=== PATIENT | male | born 1955 | race Caucasian/White ===

== ENCOUNTER 2018-12-17 13:38 | Inpatient (IN) | payer OTHER, MEDICARE ==
[2018-12-17 15:43] LABS: ADD MAN DIFF? NO
[2018-12-17 15:44] LABS: WHITE BLOOD COUNT 11.4 10^3/ul (4.8-10.8)
[2018-12-17 15:44] LABS: BASOPHIL # 0.1 10^3/ul (0.0-0.1); BASOPHILS % 0.5 % (0.0-2.0); EOSINOPHILS # 0.2 10^3/ul (0.0-0.5); EOSINOPHILS % 1.7 % (0.0-7.0); HEMATOCRIT 46.3 % (42.0-52.0); HEMOGLOBIN 15.2 g/dl (14.0-18.0); LYMPHOCYTES # 1.5 10^3/ul (0.8-2.9); LYMPHOCYTES % 13.4 % (15.0-51.0); MEAN CORPUSCULAR HEMOGLOBIN 29.6 pg (29.0-33.0); MEAN CORPUSCULAR HGB CONC 32.8 g/dl (32.0-37.0); MEAN CORPUSCULAR VOLUME 90.1 fl (82.0-101.0); MEAN PLATELET VOLUME 8.9 fl (7.4-10.4); MONOCYTE # 1.1 10^3/ul (0.3-0.9); MONOCYTES % 9.6 % (0.0-11.0); NEUTROPHIL # 8.5 10^3/ul (1.6-7.5); NEUTROPHILS % 74.4 % (39.0-77.0); PLATELET COUNT 279 10^3/UL (140-415); RED BLOOD COUNT 5.14 10^6/ul (4.70-6.10); RED CELL DISTRIBUTION WIDTH 12.7 % (11.5-14.5)
[2018-12-17 15:53] LABS: ALANINE AMINOTRANSFERASE 33 IU/L (13-69); ALBUMIN 4.1 g/dl (3.3-4.9); ALBUMIN/GLOBULIN RATIO 1.41; ALKALINE PHOSPHATASE 92 IU/L (42-121); ANION GAP 11 (5-13); ASPARTATE AMINO TRANSFERASE 39 IU/L (15-46); BILIRUBIN,INDIRECT 1.7 mg/dl (0-1.1); BILIRUBIN,TOTAL 1.7 mg/dl (0.2-1.3); BLOOD UREA NITROGEN 35 mg/dl (7-20); CARBON DIOXIDE 27 mmol/L (21-31); CHLORIDE 105 mmol/L (97-110); CREATININE 3.86 mg/dl (0.61-1.24); Estimated GFR 16 mL/min (>60); GLUCOSE 72 mg/dl (70-220); POTASSIUM 4.1 mmol/L (3.5-5.1); SODIUM 143 mmol/L (135-144)
[2018-12-17 16:01] LABS: B-TYPE NATRIURETIC PEPTIDE 121 PG/ML (0-125)
[2018-12-17] MEDS ORDERED: ACETAMINOPHEN 325 MG TAB PO (17:00)
[2018-12-17] MEDS ORDERED: ONDANSETRON 4 MG INJ IV ×2 (17:00→17:30)
[2018-12-17] MEDS ORDERED: NACL 0.9% 3 ML SYG IV (17:30)
[2018-12-17] MEDS: HYDROCODONE/APAP (5/325) TAB PO ×2 (18:03→21:02)
[2018-12-17 18:23] LABS: ADD UMIC YES; UR ASCORBIC ACID 40 mg/dL (NEGATIVE); UR BACTERIA FEW /HPF (NONE SEEN); UR BILIRUBIN (Dip) NEGATIVE (NEGATIVE); UR BLOOD (Dip) NEGATIVE (NEGATIVE); UR CLARITY CLEAR (CLEAR); UR COLOR YELLOW (YELLOW); UR GLUCOSE (Dip) NEGATIVE (NEGATIVE); UR KETONES (Dip) NEGATIVE (NEGATIVE); UR LEUKOCYTE ESTERASE (Dip) TRACE Leu/ul (NEGATIVE); UR MUCUS FEW /HPF (NONE SEEN); UR NITRITE (Dip) NEGATIVE (NEGATIVE); UR RBC 8 /HPF (0-5); UR TOTAL PROTEIN (Dip) NEGATIVE (NEGATIVE); UR UROBILINOGEN (Dip) NEGATIVE (NEGATIVE); UR WBC 10 /HPF (0-5)
[2018-12-17 18:57] LABS: URIC ACID 7.6 mg/dl (3.1-7.9)
[2018-12-17 19:03] LABS: POTASSIUM,URINE RANDOM 31.1 mmol/L (25-125)
[2018-12-17 19:03] LABS: SODIUM,URINE RANDOM 43 mmol/L (30-90)
[2018-12-17] MEDS: SOD CHLORIDE 0.9% 1,000 ML IV (19:55)
[2018-12-17 20:17] LABS: B-TYPE NATRIURETIC PEPTIDE 148 PG/ML (0-125)
[2018-12-17 20:33] LABS: OSMOLALITY 299 mOsm/kg (280-295); OSMOLALITY,URINE 309 mOsm/kg (250-1200)
[2018-12-17] MEDS: TAMSULOSIN (SR) 0.4 MG CAP PO (21:02)
[2018-12-17] MEDS: ATENOLOL 25 MG TAB PO (21:03)
[2018-12-18] MEDS: morphine 2 MG INJ IV ×2 (02:52→15:46)
[2018-12-18] MEDS: SOD CHLORIDE 0.9% 1,000 ML IV ×3 (03:11→20:44)
[2018-12-18] MEDS: PANTOPRAZOLE (EC) 40 MG TAB PO (05:40)
[2018-12-18 06:15] LABS: ADD MAN DIFF? NO
[2018-12-18 06:25] LABS: WHITE BLOOD COUNT 11.4 10^3/ul (4.8-10.8)
[2018-12-18 06:25] LABS: BASOPHILS % 0.3 % (0.0-2.0); EOSINOPHILS # 0.1 10^3/ul (0.0-0.5); EOSINOPHILS % 0.9 % (0.0-7.0); HEMATOCRIT 43.6 % (42.0-52.0); HEMOGLOBIN 14.3 g/dl (14.0-18.0); LYMPHOCYTES # 1.4 10^3/ul (0.8-2.9); LYMPHOCYTES % 12.4 % (15.0-51.0); MEAN CORPUSCULAR HEMOGLOBIN 29.6 pg (29.0-33.0); MEAN CORPUSCULAR HGB CONC 32.8 g/dl (32.0-37.0); MEAN CORPUSCULAR VOLUME 90.3 fl (82.0-101.0); MEAN PLATELET VOLUME 9.2 fl (7.4-10.4); MONOCYTE # 1.2 10^3/ul (0.3-0.9); MONOCYTES % 10.8 % (0.0-11.0); NEUTROPHIL # 8.6 10^3/ul (1.6-7.5); NEUTROPHILS % 75.3 % (39.0-77.0); PLATELET COUNT 267 10^3/UL (140-415); RED BLOOD COUNT 4.83 10^6/ul (4.70-6.10); RED CELL DISTRIBUTION WIDTH 12.9 % (11.5-14.5)
[2018-12-18 06:51] LABS: ALANINE AMINOTRANSFERASE 42 IU/L (13-69); ALBUMIN 3.8 g/dl (3.3-4.9); ALBUMIN/GLOBULIN RATIO 1.26; ALKALINE PHOSPHATASE 79 IU/L (42-121); ANION GAP 14 (5-13); ASPARTATE AMINO TRANSFERASE 36 IU/L (15-46); BILIRUBIN,INDIRECT 1.7 mg/dl (0-1.1); BILIRUBIN,TOTAL 1.7 mg/dl (0.2-1.3); BLOOD UREA NITROGEN 44 mg/dl (7-20); CALCIUM 8.8 mg/dl (8.4-10.2); CARBON DIOXIDE 21 mmol/L (21-31); CHLORIDE 106 mmol/L (97-110); CREATININE 5.71 mg/dl (0.61-1.24); Estimated GFR 10 mL/min (>60); GLUCOSE 90 mg/dl (70-220); MAGNESIUM 2.1 mg/dl (1.7-2.5); POTASSIUM 4.3 mmol/L (3.5-5.1); SODIUM 141 mmol/L (135-144); TOTAL PROTEIN 6.8 g/dl (6.1-8.1)
[2018-12-18] MEDS: ASPIRIN 81 MG TAB PO (08:18)
[2018-12-18 08:26] LABS: PHOSPHORUS 8.2 mg/dl (2.5-4.9)
[2018-12-18 08:26] LABS: CREATINE KINASE 542 IU/L (23-200)
[2018-12-18] MEDS ORDERED: ASCORBIC ACID 500 MG TAB PO (09:00)
[2018-12-18] MEDS ORDERED: ENOXAPARIN 30 MG/0.3 ML SYG SC (09:00)
[2018-12-18] MEDS: MAGNESIUM HYDROXIDE 30ML CUP PO (09:23)
[2018-12-18] MEDS: ACETAMINOPHEN 325 MG TAB PO (09:24)
[2018-12-18] MEDS: NIACIN (ER) 500 MG TAB PO (09:24)
[2018-12-18] MEDS: DOCUSATE SODIUM 100 MG CAP PO (09:26)
[2018-12-18] MEDS: METOPROLOL (XL) 25 MG TAB PO ×2 (09:27→20:46)
[2018-12-18] MEDS: BUPROPION (XL) 150 MG TAB PO (10:41)
[2018-12-18 10:56] LABS: CREATININE,URINE RANDOM 125.59 mg/dl (20-370)
[2018-12-18] MEDS: CALCIUM ACETATE 667 MG CAP PO ×2 (12:14→18:24)
[2018-12-18] MEDS: HEPARIN 5,000 UNIT/1 ML VIAL SC ×2 (15:06→21:05)
[2018-12-18 18:42] LABS: CREATININE,URINE RANDOM 114.78 mg/dl (20-370); PROTEIN/CREAT RATIO 0.11 RATIO
[2018-12-18 19:55] LABS: PROSTATE SPECIFIC ANTIGEN 4.5 ng/ml (0.0-4.0)
[2018-12-18] MEDS: TAMSULOSIN (SR) 0.4 MG CAP PO (20:45)
[2018-12-18] MEDS: CHOLECALCIFEROL 2,000 UNIT CAP PO (20:46)
[2018-12-18] MEDS ORDERED: ATORVASTATIN 40 MG TAB PO (21:00)
[2018-12-19] MEDS: HEPARIN 5,000 UNIT/1 ML VIAL SC ×3 (05:24→21:07)
[2018-12-19] MEDS: PANTOPRAZOLE (EC) 40 MG TAB PO (05:24)
[2018-12-19] MEDS: SOD CHLORIDE 0.9% 1,000 ML IV (05:26)
[2018-12-19 06:12] LABS: ADD MAN DIFF? NO
[2018-12-19 06:17] LABS: BASOPHIL # 0.1 10^3/ul (0.0-0.1); BASOPHILS % 0.5 % (0.0-2.0); EOSINOPHILS # 0.2 10^3/ul (0.0-0.5); HEMATOCRIT 42.7 % (42.0-52.0); HEMOGLOBIN 14.1 g/dl (14.0-18.0); LYMPHOCYTES # 1.8 10^3/ul (0.8-2.9); LYMPHOCYTES % 19.2 % (15.0-51.0); MEAN CORPUSCULAR HEMOGLOBIN 29.7 pg (29.0-33.0); MEAN CORPUSCULAR VOLUME 89.9 fl (82.0-101.0); MEAN PLATELET VOLUME 9.1 fl (7.4-10.4); MONOCYTE # 1.3 10^3/ul (0.3-0.9); MONOCYTES % 13.7 % (0.0-11.0); NEUTROPHILS % 64.4 % (39.0-77.0); PLATELET COUNT 245 10^3/UL (140-415); RED BLOOD COUNT 4.75 10^6/ul (4.70-6.10); RED CELL DISTRIBUTION WIDTH 12.9 % (11.5-14.5)
[2018-12-19 06:17] LABS: WHITE BLOOD COUNT 9.3 10^3/ul (4.8-10.8)
[2018-12-19 06:38] LABS: INR 1.16; PROTIME 14.9 Sec (11.9-14.9); PT RATIO 1.2
[2018-12-19 06:39] LABS: PARTIAL THROMBOPLASTIN TIME 37.1 Sec (23.0-35.0)
[2018-12-19 07:25] LABS: ANION GAP 9 (5-13); BLOOD UREA NITROGEN 31 mg/dl (7-20); CALCIUM 8.8 mg/dl (8.4-10.2); CARBON DIOXIDE 26 mmol/L (21-31); CHLORIDE 108 mmol/L (97-110); CREATININE 2.42 mg/dl (0.61-1.24); Estimated GFR 27 mL/min (>60); GLUCOSE 95 mg/dl (70-220); MAGNESIUM 2.2 mg/dl (1.7-2.5); PHOSPHORUS 4.3 mg/dl (2.5-4.9); POTASSIUM 3.8 mmol/L (3.5-5.1); SODIUM 143 mmol/L (135-144)
[2018-12-19] MEDS: ASPIRIN 81 MG TAB PO (08:28)
[2018-12-19] MEDS: METOPROLOL (XL) 25 MG TAB PO ×2 (08:31→21:05)
[2018-12-19] MEDS: NIACIN (ER) 500 MG TAB PO (08:32)
[2018-12-19] MEDS: BUPROPION (XL) 150 MG TAB PO (10:51)
[2018-12-19 20:16] LABS: PSA, FREE 1.2 ng/mL
[2018-12-19] MEDS: TAMSULOSIN (SR) 0.4 MG CAP PO (21:05)
[2018-12-19] MEDS: CHOLECALCIFEROL 2,000 UNIT CAP PO (21:05)
[2018-12-20] MEDS: PANTOPRAZOLE (EC) 40 MG TAB PO (05:52)
[2018-12-20] MEDS: HEPARIN 5,000 UNIT/1 ML VIAL SC ×3 (05:53→21:03)
[2018-12-20 06:06] LABS: ADD MAN DIFF? NO
[2018-12-20 06:33] LABS: WHITE BLOOD COUNT 8.9 10^3/ul (4.8-10.8)
[2018-12-20 06:33] LABS: BASOPHIL # 0.1 10^3/ul (0.0-0.1); BASOPHILS % 0.7 % (0.0-2.0); EOSINOPHILS # 0.3 10^3/ul (0.0-0.5); EOSINOPHILS % 3.3 % (0.0-7.0); HEMATOCRIT 44.2 % (42.0-52.0); HEMOGLOBIN 14.3 g/dl (14.0-18.0); LYMPHOCYTES # 2.1 10^3/ul (0.8-2.9); LYMPHOCYTES % 23.9 % (15.0-51.0); MEAN CORPUSCULAR HEMOGLOBIN 29.5 pg (29.0-33.0); MEAN CORPUSCULAR HGB CONC 32.4 g/dl (32.0-37.0); MEAN CORPUSCULAR VOLUME 91.1 fl (82.0-101.0); MEAN PLATELET VOLUME 9.1 fl (7.4-10.4); MONOCYTE # 1.2 10^3/ul (0.3-0.9); NEUTROPHIL # 5.2 10^3/ul (1.6-7.5); NEUTROPHILS % 58.5 % (39.0-77.0); PLATELET COUNT 274 10^3/UL (140-415); RED BLOOD COUNT 4.85 10^6/ul (4.70-6.10); RED CELL DISTRIBUTION WIDTH 12.9 % (11.5-14.5)
[2018-12-20 07:23] LABS: ANION GAP 7 (5-13); BLOOD UREA NITROGEN 18 mg/dl (7-20); CALCIUM 8.8 mg/dl (8.4-10.2); CARBON DIOXIDE 27 mmol/L (21-31); CHLORIDE 106 mmol/L (97-110); CREATININE 1.08 mg/dl (0.61-1.24); Estimated GFR > 60 mL/min (>60); GLUCOSE 101 mg/dl (70-220); MAGNESIUM 1.9 mg/dl (1.7-2.5); PHOSPHORUS 3.5 mg/dl (2.5-4.9); POTASSIUM 3.6 mmol/L (3.5-5.1); SODIUM 140 mmol/L (135-144)
[2018-12-20] MEDS: NIACIN (ER) 500 MG TAB PO (08:46)
[2018-12-20] MEDS: ASPIRIN 81 MG TAB PO (08:46)
[2018-12-20] MEDS: BUPROPION (XL) 150 MG TAB PO (08:46)
[2018-12-20] MEDS: METOPROLOL (XL) 25 MG TAB PO ×2 (08:47→21:00)
[2018-12-20] MEDS: TAMSULOSIN (SR) 0.4 MG CAP PO ×2 (08:47→21:00)
[2018-12-20] MEDS: FUROSEMIDE 20 MG INJ IV (13:13)
[2018-12-20] MEDS: CHOLECALCIFEROL 2,000 UNIT CAP PO (21:00)
[2018-12-21] MEDS: PANTOPRAZOLE (EC) 40 MG TAB PO (05:58)
[2018-12-21] MEDS: HEPARIN 5,000 UNIT/1 ML VIAL SC ×3 (05:58→20:51)
[2018-12-21 06:07] LABS: ADD MAN DIFF? NO
[2018-12-21 06:11] LABS: WHITE BLOOD COUNT 9.3 10^3/ul (4.8-10.8)
[2018-12-21 06:11] LABS: BASOPHIL # 0.1 10^3/ul (0.0-0.1); BASOPHILS % 0.5 % (0.0-2.0); EOSINOPHILS # 0.4 10^3/ul (0.0-0.5); EOSINOPHILS % 4.5 % (0.0-7.0); HEMATOCRIT 45.3 % (42.0-52.0); HEMOGLOBIN 15.1 g/dl (14.0-18.0); LYMPHOCYTES # 2.7 10^3/ul (0.8-2.9); LYMPHOCYTES % 29.4 % (15.0-51.0); MEAN CORPUSCULAR HEMOGLOBIN 29.9 pg (29.0-33.0); MEAN CORPUSCULAR HGB CONC 33.3 g/dl (32.0-37.0); MEAN CORPUSCULAR VOLUME 89.7 fl (82.0-101.0); MEAN PLATELET VOLUME 8.9 fl (7.4-10.4); MONOCYTE # 1.2 10^3/ul (0.3-0.9); MONOCYTES % 12.7 % (0.0-11.0); NEUTROPHIL # 4.9 10^3/ul (1.6-7.5); NEUTROPHILS % 52.5 % (39.0-77.0); PLATELET COUNT 283 10^3/UL (140-415); RED BLOOD COUNT 5.05 10^6/ul (4.70-6.10); RED CELL DISTRIBUTION WIDTH 12.8 % (11.5-14.5)
[2018-12-21 06:40] LABS: ALANINE AMINOTRANSFERASE 26 IU/L (13-69); ALBUMIN 3.3 g/dl (3.3-4.9); ALBUMIN/GLOBULIN RATIO 1.06; ALKALINE PHOSPHATASE 79 IU/L (42-121); ANION GAP 6 (5-13); ASPARTATE AMINO TRANSFERASE 24 IU/L (15-46); BILIRUBIN,INDIRECT 0.8 mg/dl (0-1.1); BILIRUBIN,TOTAL 0.8 mg/dl (0.2-1.3); BLOOD UREA NITROGEN 17 mg/dl (7-20); CALCIUM 8.8 mg/dl (8.4-10.2); CARBON DIOXIDE 30 mmol/L (21-31); CHLORIDE 103 mmol/L (97-110); CREATININE 0.96 mg/dl (0.61-1.24); Estimated GFR > 60 mL/min (>60); GLUCOSE 98 mg/dl (70-220); PHOSPHORUS 3.9 mg/dl (2.5-4.9); POTASSIUM 3.5 mmol/L (3.5-5.1); SODIUM 139 mmol/L (135-144); TOTAL PROTEIN 6.4 g/dl (6.1-8.1)
[2018-12-21 06:48] LABS: ALBUMIN 3.2 g/dl (3.3-4.9); ANION GAP 7 (5-13); BLOOD UREA NITROGEN 18 mg/dl (7-20); CALCIUM 8.9 mg/dl (8.4-10.2); CARBON DIOXIDE 28 mmol/L (21-31); CHLORIDE 104 mmol/L (97-110); CREATININE 0.92 mg/dl (0.61-1.24); GLUCOSE 95 mg/dl (70-220); MAGNESIUM 1.7 mg/dl (1.7-2.5); PHOSPHORUS 3.9 mg/dl (2.5-4.9); POTASSIUM 3.8 mmol/L (3.5-5.1); SODIUM 139 mmol/L (135-144)
[2018-12-21] MEDS: METOPROLOL (XL) 25 MG TAB PO ×2 (08:48→20:51)
[2018-12-21] MEDS: TAMSULOSIN (SR) 0.4 MG CAP PO ×2 (08:48→20:48)
[2018-12-21] MEDS: ASPIRIN 81 MG TAB PO (08:48)
[2018-12-21] MEDS: NIACIN (ER) 500 MG TAB PO (08:48)
[2018-12-21] MEDS: FUROSEMIDE 20 MG INJ IV ×2 (08:49→17:50)
[2018-12-21] MEDS: BUPROPION (XL) 150 MG TAB PO (08:49)
[2018-12-21] MEDS: POTASSIUM CHLORIDE (SR) 20 MEQ TAB PO (08:54)
[2018-12-21] MEDS: MAGNESIUM OXIDE 400 MG TAB PO (08:54)
[2018-12-21] MEDS: CHOLECALCIFEROL 2,000 UNIT CAP PO (20:48)
[2018-12-22] MEDS: HEPARIN 5,000 UNIT/1 ML VIAL SC ×3 (05:27→20:03)
[2018-12-22] MEDS: PANTOPRAZOLE (EC) 40 MG TAB PO (05:48)
[2018-12-22] MEDS: FUROSEMIDE 20 MG INJ IV ×2 (05:50→18:01)
[2018-12-22 06:16] LABS: ADD MAN DIFF? NO
[2018-12-22 06:21] LABS: BASOPHIL # 0.1 10^3/ul (0.0-0.1); BASOPHILS % 0.9 % (0.0-2.0); EOSINOPHILS # 0.5 10^3/ul (0.0-0.5); EOSINOPHILS % 5.2 % (0.0-7.0); HEMATOCRIT 46.8 % (42.0-52.0); HEMOGLOBIN 15.4 g/dl (14.0-18.0); LYMPHOCYTES # 2.8 10^3/ul (0.8-2.9); LYMPHOCYTES % 28.4 % (15.0-51.0); MEAN CORPUSCULAR HEMOGLOBIN 29.6 pg (29.0-33.0); MEAN CORPUSCULAR HGB CONC 32.9 g/dl (32.0-37.0); MEAN PLATELET VOLUME 8.9 fl (7.4-10.4); MONOCYTE # 1.1 10^3/ul (0.3-0.9); MONOCYTES % 11.3 % (0.0-11.0); NEUTROPHIL # 5.4 10^3/ul (1.6-7.5); NEUTROPHILS % 53.7 % (39.0-77.0); PLATELET COUNT 331 10^3/UL (140-415); RED CELL DISTRIBUTION WIDTH 12.7 % (11.5-14.5)
[2018-12-22 07:09] LABS: ALBUMIN 3.5 g/dl (3.3-4.9); ANION GAP 7 (5-13); BLOOD UREA NITROGEN 18 mg/dl (7-20); CARBON DIOXIDE 32 mmol/L (21-31); CHLORIDE 103 mmol/L (97-110); CREATININE 1.02 mg/dl (0.61-1.24); GLUCOSE 108 mg/dl (70-220); MAGNESIUM 1.7 mg/dl (1.7-2.5); POTASSIUM 3.6 mmol/L (3.5-5.1); SODIUM 142 mmol/L (135-144)
[2018-12-22] MEDS: NIACIN (ER) 500 MG TAB PO (08:35)
[2018-12-22] MEDS: BUPROPION (XL) 150 MG TAB PO (08:35)
[2018-12-22] MEDS: METOPROLOL (XL) 25 MG TAB PO ×2 (08:36→20:03)
[2018-12-22] MEDS: TAMSULOSIN (SR) 0.4 MG CAP PO ×2 (08:36→20:02)
[2018-12-22] MEDS: ASPIRIN 81 MG TAB PO (08:36)
[2018-12-22] MEDS: CHOLECALCIFEROL 2,000 UNIT CAP PO (20:02)
[2018-12-23] MEDS: FUROSEMIDE 20 MG INJ IV ×2 (05:08→18:20)
[2018-12-23] MEDS: PANTOPRAZOLE (EC) 40 MG TAB PO (05:09)
[2018-12-23 06:06] LABS: ADD MAN DIFF? NO
[2018-12-23 06:09] LABS: BASOPHIL # 0.1 10^3/ul (0.0-0.1); BASOPHILS % 0.7 % (0.0-2.0); EOSINOPHILS # 0.5 10^3/ul (0.0-0.5); EOSINOPHILS % 5.2 % (0.0-7.0); HEMATOCRIT 47.6 % (42.0-52.0); HEMOGLOBIN 15.1 g/dl (14.0-18.0); LYMPHOCYTES # 2.9 10^3/ul (0.8-2.9); LYMPHOCYTES % 30.7 % (15.0-51.0); MEAN CORPUSCULAR HGB CONC 31.7 g/dl (32.0-37.0); MEAN CORPUSCULAR VOLUME 91.4 fl (82.0-101.0); MEAN PLATELET VOLUME 8.8 fl (7.4-10.4); MONOCYTE # 1.1 10^3/ul (0.3-0.9); MONOCYTES % 11.4 % (0.0-11.0); NEUTROPHIL # 4.9 10^3/ul (1.6-7.5); NEUTROPHILS % 51.4 % (39.0-77.0); PLATELET COUNT 323 10^3/UL (140-415); RED BLOOD COUNT 5.21 10^6/ul (4.70-6.10); RED CELL DISTRIBUTION WIDTH 12.6 % (11.5-14.5)
[2018-12-23 06:09] LABS: WHITE BLOOD COUNT 9.5 10^3/ul (4.8-10.8)
[2018-12-23 06:40] LABS: ANION GAP 10 (5-13); BLOOD UREA NITROGEN 19 mg/dl (7-20); CARBON DIOXIDE 31 mmol/L (21-31); CHLORIDE 99 mmol/L (97-110); CREATININE 0.95 mg/dl (0.61-1.24); Estimated GFR > 60 mL/min (>60); GLUCOSE 109 mg/dl (70-220); MAGNESIUM 1.8 mg/dl (1.7-2.5); PHOSPHORUS 4.2 mg/dl (2.5-4.9); POTASSIUM 3.5 mmol/L (3.5-5.1); SODIUM 140 mmol/L (135-144)
[2018-12-23] MEDS ORDERED: SEVOFLURANE 15 MIN (07:00)
[2018-12-23] MEDS ORDERED: IOHEXOL 300MG/ML 30 ML BTL (07:00)
[2018-12-23] MEDS ORDERED: PROPOFOL 20 ML (07:30)
[2018-12-23] MEDS ORDERED: LIDOCAINE 2% (SDV) 5 ML INJ (07:31)
[2018-12-23] MEDS ORDERED: MIDAZOLAM 1 MG/ML 2 ML INJ (07:31)
[2018-12-23] MEDS ORDERED: CEFAZOLIN 1 GM INJ (07:48)
[2018-12-23] MEDS ORDERED: ONDANSETRON 4 MG INJ (07:53)
[2018-12-23] MEDS ORDERED: DEXAMETHASONE 4 MG/ML 5 ML INJ (07:53)
[2018-12-23] MEDS ORDERED: FAMOTIDINE 20 MG INJ (07:54)
[2018-12-23] MEDS: ASPIRIN 81 MG TAB PO (08:42)
[2018-12-23] MEDS: BUPROPION (XL) 150 MG TAB PO (08:42)
[2018-12-23] MEDS: NIACIN (ER) 500 MG TAB PO (08:42)
[2018-12-23] MEDS: METOPROLOL (XL) 25 MG TAB PO ×2 (08:42→20:05)
[2018-12-23] MEDS: TAMSULOSIN (SR) 0.4 MG CAP PO ×2 (08:42→20:05)
[2018-12-23] MEDS ORDERED: HYDROmorphONE 1 MG/5 ML IV SYRINGE IV ×2 (09:44→10:00)
[2018-12-23] MEDS: HYDROmorphONE 1 MG/5 ML IV SYRINGE IV ×2 (09:48→09:58)
[2018-12-23] MEDS ORDERED: DIPHENHYDRAMINE 50 MG INJ IV (10:00)
[2018-12-23] MEDS ORDERED: MEPERIDINE 25 MG INJ IV (10:00)
[2018-12-23] MEDS ORDERED: PROCHLORPERAZINE 10 MG INJ IV (10:00)
[2018-12-23] MEDS ORDERED: FENTAnyl 50 MCG/ML VIAL IV (10:00)
[2018-12-23] MEDS ORDERED: ONDANSETRON 4 MG INJ IV (10:00)
[2018-12-23 14:31] LABS: HEMATOCRIT 49.2 % (42.0-52.0)
[2018-12-23 18:27] LABS: HEMATOCRIT 48.7 % (42.0-52.0); HEMOGLOBIN 15.8 g/dl (14.0-18.0)
[2018-12-23] MEDS: CHOLECALCIFEROL 2,000 UNIT CAP PO (20:05)
[2018-12-24 01:05] LABS: HEMATOCRIT 46.3 % (42.0-52.0); HEMOGLOBIN 15.1 g/dl (14.0-18.0)
[2018-12-24 05:11] LABS: ADD MAN DIFF? NO
[2018-12-24 05:20] LABS: WHITE BLOOD COUNT 12.2 10^3/ul (4.8-10.8)
[2018-12-24 05:20] LABS: BASOPHIL # 0.1 10^3/ul (0.0-0.1); BASOPHILS % 0.4 % (0.0-2.0); EOSINOPHILS # 0.2 10^3/ul (0.0-0.5); EOSINOPHILS % 1.3 % (0.0-7.0); HEMATOCRIT 48.7 % (42.0-52.0); HEMOGLOBIN 16.1 g/dl (14.0-18.0); LYMPHOCYTES # 2.1 10^3/ul (0.8-2.9); LYMPHOCYTES % 17.5 % (15.0-51.0); MEAN CORPUSCULAR HEMOGLOBIN 29.6 pg (29.0-33.0); MEAN CORPUSCULAR HGB CONC 33.1 g/dl (32.0-37.0); MEAN CORPUSCULAR VOLUME 89.5 fl (82.0-101.0); MONOCYTES % 8.3 % (0.0-11.0); NEUTROPHIL # 8.8 10^3/ul (1.6-7.5); PLATELET COUNT 374 10^3/UL (140-415); RED BLOOD COUNT 5.44 10^6/ul (4.70-6.10); RED CELL DISTRIBUTION WIDTH 12.6 % (11.5-14.5)
[2018-12-24 05:36] LABS: ANION GAP 10 (5-13); BLOOD UREA NITROGEN 20 mg/dl (7-20); CALCIUM 9.4 mg/dl (8.4-10.2); CARBON DIOXIDE 33 mmol/L (21-31); CHLORIDE 96 mmol/L (97-110); CREATININE 1.01 mg/dl (0.61-1.24); Estimated GFR > 60 mL/min (>60); GLUCOSE 115 mg/dl (70-220); MAGNESIUM 1.8 mg/dl (1.7-2.5); PHOSPHORUS 4.4 mg/dl (2.5-4.9); POTASSIUM 4.1 mmol/L (3.5-5.1); SODIUM 139 mmol/L (135-144)
[2018-12-24] MEDS: PANTOPRAZOLE (EC) 40 MG TAB PO (05:45)
[2018-12-24] MEDS: FUROSEMIDE 20 MG INJ IV (05:45)
[2018-12-24] MEDS: METOPROLOL (XL) 25 MG TAB PO ×2 (08:09→20:43)
[2018-12-24] MEDS: TAMSULOSIN (SR) 0.4 MG CAP PO ×2 (08:28→20:44)
[2018-12-24] MEDS: BUPROPION (XL) 150 MG TAB PO (08:29)
[2018-12-24] MEDS: NIACIN (ER) 500 MG TAB PO (08:29)
[2018-12-24] MEDS: FUROSEMIDE 20 MG TAB PO (18:22)
[2018-12-24] MEDS: CHOLECALCIFEROL 2,000 UNIT CAP PO (20:43)
[2018-12-25 05:19] LABS: ADD MAN DIFF? NO
[2018-12-25 05:27] LABS: BASOPHIL # 0.1 10^3/ul (0.0-0.1); BASOPHILS % 0.7 % (0.0-2.0); EOSINOPHILS # 0.4 10^3/ul (0.0-0.5); HEMATOCRIT 46.4 % (42.0-52.0); LYMPHOCYTES # 1.8 10^3/ul (0.8-2.9); LYMPHOCYTES % 19.3 % (15.0-51.0); MEAN CORPUSCULAR HEMOGLOBIN 29.3 pg (29.0-33.0); MEAN CORPUSCULAR HGB CONC 32.3 g/dl (32.0-37.0); MEAN CORPUSCULAR VOLUME 90.6 fl (82.0-101.0); MEAN PLATELET VOLUME 8.9 fl (7.4-10.4); MONOCYTE # 0.9 10^3/ul (0.3-0.9); MONOCYTES % 9.6 % (0.0-11.0); NEUTROPHILS % 65.6 % (39.0-77.0); PLATELET COUNT 335 10^3/UL (140-415); RED BLOOD COUNT 5.12 10^6/ul (4.70-6.10); RED CELL DISTRIBUTION WIDTH 12.6 % (11.5-14.5)
[2018-12-25 05:27] LABS: WHITE BLOOD COUNT 9.1 10^3/ul (4.8-10.8)
[2018-12-25 05:47] LABS: ANION GAP 8 (5-13); BLOOD UREA NITROGEN 22 mg/dl (7-20); CARBON DIOXIDE 31 mmol/L (21-31); CHLORIDE 100 mmol/L (97-110); CREATININE 0.91 mg/dl (0.61-1.24); Estimated GFR > 60 mL/min (>60); GLUCOSE 119 mg/dl (70-220); MAGNESIUM 1.7 mg/dl (1.7-2.5); PHOSPHORUS 4.4 mg/dl (2.5-4.9); POTASSIUM 3.5 mmol/L (3.5-5.1); SODIUM 139 mmol/L (135-144)
[2018-12-25] MEDS: PANTOPRAZOLE (EC) 40 MG TAB PO (05:56)
[2018-12-25] MEDS: FUROSEMIDE 20 MG TAB PO ×2 (05:56→18:54)
[2018-12-25] MEDS: ACETAMINOPHEN 325 MG TAB PO (06:13)
[2018-12-25] MEDS: TAMSULOSIN (SR) 0.4 MG CAP PO ×2 (09:00→21:48)
[2018-12-25] MEDS: NIACIN (ER) 500 MG TAB PO (09:01)
[2018-12-25] MEDS: METOPROLOL (XL) 25 MG TAB PO ×2 (09:01→21:51)
[2018-12-25] MEDS: BUPROPION (XL) 150 MG TAB PO (09:01)
[2018-12-25] MEDS: CIPROFLOXACIN 500 MG TAB PO ×2 (09:05→18:53)
[2018-12-25] MEDS: CHOLECALCIFEROL 2,000 UNIT CAP PO (21:48)
[2018-12-26] MEDS: PANTOPRAZOLE (EC) 40 MG TAB PO (05:23)
[2018-12-26] MEDS: CIPROFLOXACIN 500 MG TAB PO ×2 (05:24→18:00)
[2018-12-26] MEDS: FUROSEMIDE 20 MG TAB PO (05:24)
[2018-12-26] MEDS: TAMSULOSIN (SR) 0.4 MG CAP PO (08:25)
[2018-12-26] MEDS: BUPROPION (XL) 150 MG TAB PO (08:26)
[2018-12-26] MEDS: METOPROLOL (XL) 25 MG TAB PO ×2 (08:26→21:00)
[2018-12-26] MEDS: ASPIRIN 81 MG TAB PO (09:00)
[2018-12-26] MEDS: NIACIN (ER) 500 MG TAB PO (09:37)
[2018-12-26] MEDS ORDERED: FENTAnyl 50 MCG/ML VIAL (11:16)
[2018-12-26] MEDS ORDERED: PROPOFOL 20 ML ×3 (11:17→17:57)
[2018-12-26] MEDS ORDERED: MIDAZOLAM 1 MG/ML 2 ML INJ ×2 (11:17→17:38)
[2018-12-26] MEDS ORDERED: LIDOCAINE 2% (SDV) 5 ML INJ ×2 (11:18→17:37)
[2018-12-26] MEDS ORDERED: METOCLOPRAMIDE 10 MG INJ (11:18)
[2018-12-26] MEDS ORDERED: ROCURONIUM 50 MG INJ ×3 (17:37→21:06)
[2018-12-26] MEDS ORDERED: SUCCINYLCHOLINE CHLORIDE 100 MG/5 ML SYG IV (17:37)
[2018-12-26] MEDS ORDERED: CIPROFLOXACIN 400MG/D5W 200 ML (17:57)
[2018-12-26] MEDS ORDERED: METHYLENE BLUE 1% 10 ML INJ (18:04)
[2018-12-26] MEDS ORDERED: DEXAMETHASONE 4 MG/ML 5 ML INJ (18:17)
[2018-12-26] MEDS ORDERED: ONDANSETRON 4 MG INJ (18:17)
[2018-12-26] MEDS ORDERED: FAMOTIDINE 20 MG INJ (18:18)
[2018-12-26] MEDS ORDERED: EPHEDrine SULFATE 50 MG/5 ML SYG IV (18:30)
[2018-12-26] MEDS ORDERED: FENTAnyl 50 MCG/ML VIAL IV (18:30)
[2018-12-26] MEDS ORDERED: DIPHENHYDRAMINE 50 MG INJ IV (18:30)
[2018-12-26] MEDS ORDERED: HYDROmorphONE 1 MG/5 ML IV SYRINGE IV (18:30)
[2018-12-26] MEDS ORDERED: hydrALAzine 20 MG INJ IV (18:30)
[2018-12-26] MEDS ORDERED: LABETALOL HCL 20MG INJ IV (18:30)
[2018-12-26] MEDS ORDERED: PROCHLORPERAZINE 10 MG INJ IV (18:30)
[2018-12-26] MEDS: CHOLECALCIFEROL 2,000 UNIT CAP PO (21:00)
[2018-12-26] MEDS ORDERED: SUGAMMADEX SODIUM 200 MG/2 ML VIAL IV (21:15)
[2018-12-26] MEDS: HYDROmorphONE 1 MG/5 ML IV SYRINGE IV ×2 (21:51→21:58)
[2018-12-26] MEDS ORDERED: HYDROCODONE/APAP (5/325) TAB PO (22:00)
[2018-12-26] MEDS ORDERED: TOLTERODINE (SR) 4 MG CAP PO (22:00)
[2018-12-26] MEDS ORDERED: MAGNESIUM HYDROXIDE 30ML CUP PO (22:00)
[2018-12-26] MEDS: MEPERIDINE 25 MG INJ IV (22:03)
[2018-12-26] MEDS: ONDANSETRON 4 MG INJ IV (22:03)
[2018-12-26] MEDS: HYDROCODONE/APAP (5/325) TAB PO (22:50)
[2018-12-27] MEDS: HYDROCODONE/APAP (5/325) TAB PO (04:07)
[2018-12-27] MEDS: PANTOPRAZOLE (EC) 40 MG TAB PO (05:43)
[2018-12-27] MEDS: CIPROFLOXACIN 500 MG TAB PO ×2 (05:43→17:57)
[2018-12-27] MEDS: FUROSEMIDE 20 MG TAB PO (05:44)
[2018-12-27 05:55] LABS: ADD MAN DIFF? NO
[2018-12-27 06:08] LABS: BASOPHILS % 0.3 % (0.0-2.0); EOSINOPHILS % 0.2 % (0.0-7.0); HEMATOCRIT 43.1 % (42.0-52.0); HEMOGLOBIN 13.8 g/dl (14.0-18.0); LYMPHOCYTES # 1.4 10^3/ul (0.8-2.9); LYMPHOCYTES % 10.5 % (15.0-51.0); MEAN CORPUSCULAR HEMOGLOBIN 29.4 pg (29.0-33.0); MEAN CORPUSCULAR VOLUME 91.9 fl (82.0-101.0); MONOCYTE # 1.3 10^3/ul (0.3-0.9); MONOCYTES % 9.8 % (0.0-11.0); NEUTROPHIL # 10.1 10^3/ul (1.6-7.5); NEUTROPHILS % 78.1 % (39.0-77.0); PLATELET COUNT 391 10^3/UL (140-415); RED BLOOD COUNT 4.69 10^6/ul (4.70-6.10); RED CELL DISTRIBUTION WIDTH 12.9 % (11.5-14.5)
[2018-12-27 06:08] LABS: WHITE BLOOD COUNT 12.9 10^3/ul (4.8-10.8)
[2018-12-27 06:30] LABS: ANION GAP 11 (5-13); BLOOD UREA NITROGEN 18 mg/dl (7-20); CALCIUM 8.8 mg/dl (8.4-10.2); CARBON DIOXIDE 30 mmol/L (21-31); CHLORIDE 99 mmol/L (97-110); CREATININE 0.92 mg/dl (0.61-1.24); Estimated GFR > 60 mL/min (>60); GLUCOSE 158 mg/dl (70-220); MAGNESIUM 1.7 mg/dl (1.7-2.5); PHOSPHORUS 4.1 mg/dl (2.5-4.9); POTASSIUM 4.3 mmol/L (3.5-5.1); SODIUM 140 mmol/L (135-144)
[2018-12-27] MEDS: BUPROPION (XL) 150 MG TAB PO (09:22)
[2018-12-27] MEDS: DOCUSATE SODIUM 100 MG CAP PO ×2 (09:22→20:44)
[2018-12-27] MEDS: METOPROLOL (XL) 25 MG TAB PO ×2 (09:23→20:43)
[2018-12-27] MEDS: ASPIRIN 81 MG TAB PO (09:24)
[2018-12-27] MEDS: NIACIN (ER) 500 MG TAB PO (09:24)
[2018-12-27] MEDS: CHOLECALCIFEROL 2,000 UNIT CAP PO (20:43)
[2018-12-27 21:13] LABS: HEMATOCRIT 37.8 % (42.0-52.0); HEMOGLOBIN 12.5 g/dl (14.0-18.0)
[2018-12-28 05:31] LABS: ADD MAN DIFF? NO
[2018-12-28 05:41] LABS: ABNORMAL IP MESSAGE 1; BASOPHIL # 0.1 10^3/ul (0.0-0.1); BASOPHILS % 0.7 % (0.0-2.0); EOSINOPHILS # 0.4 10^3/ul (0.0-0.5); EOSINOPHILS % 3.5 % (0.0-7.0); HEMATOCRIT 38.7 % (42.0-52.0); HEMOGLOBIN 12.6 g/dl (14.0-18.0); LYMPHOCYTES # 3.4 10^3/ul (0.8-2.9); LYMPHOCYTES % 27.7 % (15.0-51.0); MEAN CORPUSCULAR HEMOGLOBIN 29.9 pg (29.0-33.0); MEAN CORPUSCULAR HGB CONC 32.6 g/dl (32.0-37.0); MEAN CORPUSCULAR VOLUME 91.9 fl (82.0-101.0); MEAN PLATELET VOLUME 9.1 fl (7.4-10.4); MONOCYTE # 1.6 10^3/ul (0.3-0.9); MONOCYTES % 13.4 % (0.0-11.0); NEUTROPHIL # 6.6 10^3/ul (1.6-7.5); NEUTROPHILS % 53.6 % (39.0-77.0); PLATELET COUNT 366 10^3/UL (140-415); POSITIVE DIFF @See below; RED BLOOD COUNT 4.21 10^6/ul (4.70-6.10); RED CELL DISTRIBUTION WIDTH 13.1 % (11.5-14.5)
[2018-12-28 05:41] LABS: WHITE BLOOD COUNT 12.3 10^3/ul (4.8-10.8)
[2018-12-28 06:06] LABS: ANION GAP 9 (5-13); BLOOD UREA NITROGEN 17 mg/dl (7-20); CALCIUM 8.6 mg/dl (8.4-10.2); CARBON DIOXIDE 31 mmol/L (21-31); CHLORIDE 99 mmol/L (97-110); CREATININE 0.86 mg/dl (0.61-1.24); Estimated GFR > 60 mL/min (>60); GLUCOSE 107 mg/dl (70-220); MAGNESIUM 1.8 mg/dl (1.7-2.5); PHOSPHORUS 3.7 mg/dl (2.5-4.9); SODIUM 139 mmol/L (135-144)
[2018-12-28] MEDS: CIPROFLOXACIN 500 MG TAB PO (06:35)
[2018-12-28] MEDS: FUROSEMIDE 20 MG TAB PO (06:35)
[2018-12-28] MEDS: PANTOPRAZOLE (EC) 40 MG TAB PO (06:35)
[2018-12-28] MEDS: DOCUSATE SODIUM 100 MG CAP PO (08:22)
[2018-12-28] MEDS: BUPROPION (XL) 150 MG TAB PO (08:22)
[2018-12-28] MEDS: NIACIN (ER) 500 MG TAB PO (08:22)
[2018-12-28] MEDS: METOPROLOL (XL) 25 MG TAB PO (08:22)
[2018-12-28] MEDS: ASPIRIN 81 MG TAB PO (08:22)
== END 2018-12-28 16:45 | disposition home or self-care (01) | DRG 666 ==
LOC: E/R 13:38 → MS1 12-23 10:19 → 5EC 16:42
PROC: 0TCB8ZZ Extirpation of Matter from Bladder, Via Natural or Artificial Opening Endoscopic (ICD-10-PCS; 2018-12-23 07:30)
PROC: 0VT08ZZ Resection of Prostate, Via Natural or Artificial Opening Endoscopic (ICD-10-PCS; principal; 2018-12-23 07:32)
DX: N17.8 Other acute kidney failure (principal); N13.8 Other obstructive and reflux uropathy; N40.1 Benign prostatic hyperplasia with lower urinary tract symptoms; N13.2 Hydronephrosis with renal and ureteral calculous obstruction; N21.0 Calculus in bladder; I10 Essential (primary) hypertension; R33.8 Other retention of urine; R35.0 Frequency of micturition; R39.15 Urgency of urination; R39.12 Poor urinary stream; R60.0 Localized edema; Z68.39 Body mass index [BMI] 39.0-39.9, adult; E66.9 Obesity, unspecified; T39.395A Adverse effect of other nonsteroidal anti-inflammatory drugs [NSAID], initial encounter; T46.4X5A Adverse effect of angiotensin-converting-enzyme inhibitors, initial encounter; G47.33 Obstructive sleep apnea (adult) (pediatric)
CPT/HCPCS: 36415; 71045; 74018; 74176; 74430; 76775; 80048; 80053; 80069; 81001; 81003; 82550; 82570; 83735; 83880; 83930; 83935; 84100; 84133; 84153; 84154; 84155; 84300; 84443; 84560; 85014; 85018; 85025; 85610; 85730; 87086; 88300; 88305; 93005; 93306; 93970; 97161; 97165; 99291-25